=== PATIENT | male | born 1990 | race Caucasian/White ===

== ENCOUNTER 2021-12-02 09:47 | Emergency (ER) | payer OTHER ==
[2021-12-02 10:06] VITALS: BP 135/90; PULSE 72
[2021-12-02] MEDS: Pantoprazole 40 MG Vial IVPUSH ONE (10:53)
[2021-12-02] MEDS: Ondansetron 4 MG/2 ML SDV IVPUSH ONE (10:53)
[2021-12-02] MEDS: Sodium Chloride 0.9% 1,000 ML IV ONE (10:53)
[2021-12-02] MEDS: GI Cocktail Oral Solution 30 ML PO ONE (10:54)
[2021-12-02 10:59] LABS: ANION GAP 13.5 mEq/L (7-13)
== END 2021-12-02 11:33 | disposition home or self-care (01) ==
LOC: DL.ED 09:47
DX: K29.50 Unspecified chronic gastritis without bleeding (principal); Z88.1 Allergy status to other antibiotic agents
CPT/HCPCS: 36415; 80053; 81001; 82150; 83605; 83690; 84484; 85025; 85610; 85730; 96361; 96374; 96375; 99284-25; A9270-GY; C9113; J2405; J7030